=== PATIENT | female | born 1990 | race Caucasian/White ===

== ENCOUNTER 2019-10-29 20:20 | Emergency (ER) | payer MEDICAID ==
[~2019-10-29] VITALS: Ht 162.6 cm; Wt 80.0 kg
[2019-10-29] MEDS ORDERED: IBUPROFEN 800MG TABLET PO ONE (21:00)
[2019-10-30] VITALS: BP 152/80
== END 2019-10-30 02:06 | disposition home or self-care (01) ==
LOC: ER 20:20
DX: S00.83XA Contusion of other part of head, initial encounter (principal); R07.89 Other chest pain; V49.50XA Passenger injured in collision with unspecified motor vehicles in traffic accident, initial encounter; Y93.89 Activity, other specified; Y92.410 Unspecified street and highway as the place of occurrence of the external cause; R03.0 Elevated blood-pressure reading, without diagnosis of hypertension
CPT/HCPCS: 70486; 71045; 81025; 99284